=== PATIENT | female | born 1995 | race Caucasian/White ===

== ENCOUNTER 2017-11-30 17:40 | Emergency (ER) | payer OTHER ==
--- NOTE | 2017-11-30 18:42 | EDPHY ---
H & P Stated Complaint: cervical pain/IUD Time Seen by Provider: 11/30/17 18:42 - Personal History LMP (Females 10-55): IUD In Place Current Tetanus/Diphtheria Vaccine: Yes - Medical/Surgical History Hx Asthma: No Hx Chronic Respiratory Disease: No Hx Diabetes: No Hx Cardiac Disease: No Hx Renal Disease: No Hx Cirrhosis: No Hx Alcoholism: No - Social History Smoking Status: Current some day smoker Constitutional: Initial Vital Signs Temperature (C) 36.7 C 11/30/17 18:04 Heart Rate 90 11/30/17 18:04 Respiratory Rate 18 11/30/17 18:04 Blood Pressure 132/94 H 11/30/17 18:04 O2 Sat (%) 99 11/30/17 18:04 O2 Delivery Mode Room Air Allergies/Adverse Reactions: No Known Allergies Allergy (Unverified 11/30/17 18:07) Home Medications: Medication Instructions Recorded Cephalexin [Keflex (RX)] 500 mg PO TID #30 cap 11/30/17 Fluconazole 11/30/17 Medical Decision Making - Diagnostics Imaging Results: Imaging Impressions Pelvic/Renal Ultrasound 11/30/17 18:43 Impression: 1. There is an appropriately-positioned echogenic intrauterine device. 2. Bilateral ovarian enlargement with numerous tiny follicles. In the appropriate clinical context, this could represent PCOS. There is no evidence of ovarian torsion or dominant adnexal mass. 3. There is a small amount of free fluid in the pelvic cul-de-sac, which is a nonspecific finding, but could represent rupture of an ovarian follicle or cyst. Findings were discussed with Nayan Pavon MD at 20:40, on 11/30/2017. Imaging: Discussed imaging studies w/ call center operator Radiologist ED Course/Re-evaluation: CHIEF COMPLAINT: IUD Movement HISTORY OF PRESENT ILLNESS: This patient is a healthy 22 year old female. She complains of cervical discomfort onset this morning. She has also noted some pink-tinged vaginal discharge. When she provided a urine sample this evening, she saw some blood present. She has had an IUD in place since July, and had no complications from this in the past. After her symptoms began today, she checked for the strings of her IUD but was unable to locate them. She is concerned that the device may have moved. She denies any fever, flank pain, dysuria, abdominal pain , chest pain, shortness of breath, or other associated symptoms. REVIEW OF SYSTEMS: A 10 point review of systems was performed and is negative with the exception of the elements mentioned in the history of present illness. PHYSICAL EXAM: HR, BP, O2 Sat, RR. Temp noted General Appearance: Alert, well hydrated, appropriate, and non-toxic appearing. Head: Atraumatic without scalp tenderness or obvious injury Eyes: Pupils equal, round, reactive to light and accommodation, EOMI, no trauma , no injection. Ears: Clear bilaterally, no perforation, normal landmarks Nose: Atraumatic, no rhinorrhea, clear. Throat: There is no erythema or exudates, no lesions, normal tonsils, mucus membranes moist. Neck: Supple, 2+ carotid upstroke, nontender, no lymphadenopathy. Respiratory: No retractions, no distress, no wheezes, and no accessory muscle use. Lungs are clear to auscultation bilaterally. Cardiovascular: Regular rate and rhythm, no murmurs, rubs, or gallops. Bilateral carotid, radial, dorsalis pedis, and posterior tibial pulses intact. Good capillary refill all extremities. Gastrointestinal: Abdomen is soft, nontender, non-distended, no masses, no rebound, no guarding, no peritoneal signs. Musculoskeletal: Normal active ROM of all extremities, atraumatic. Neurological: Alert, appropriate, and interactive. The patient has normal DTRs and non-focal cranial nerves, motor, sensory, and cerebellar exam. Skin: No rashes, good turgor, no nodules on palpation. Past medical history: IUD in place. Past surgical history: Noncontributory. Family history: Noncontributory Social history: Friend at bedside. Does not abuse tobacco, drugs, or alcohol. DIFFERENTIAL DIAGNOSIS: The differential diagnosis for the patient's vaginal discomfort and bleeding included but was not limited to IUD displacement, ectopic , menses, miscarriage, and dysfunctional uterine bleeding. MEDICAL DECISION MAKIN22 y/o female presents with concerns that her IUD has shifted. Plan for US to evaluate IUD placement. Plan for labs including UA, urine test. UA positive for UTI. Urine test is negative. 20:[address] Noble, radiologist. US reveals ovarian cysts bilaterally. IUD is positioned correctly. Reassessed patient. Discussed imaging and laboratory results. Administered 500mg PO Keflex. Plan to discharge home in good condition with prescription for Keflex. Follow up and return precautions discussed. She is comfortable with this plan. - Data Points Laboratory Results: 11/30/17 11/30/17 18:40 18:40 Urine Color YELLOW Urine Appearance TURBID Urine pH 6.0 (5.0-7.5) Ur Specific Hardy 1.020 (1.002-1.030) Urine Protein 2+ H (NEGATIVE) Urine Ketones TRACE H (NEGATIVE) Urine Blood 3+ H (NEGATIVE) Urine Nitrate NEGATIVE (NEGATIVE) Urine Bilirubin NEGATIVE (NEGATIVE) Urine Urobilinogen NEGATIVE EU EU (0.2-1.0) Ur Leukocyte Esterase 1+ H (NEGATIVE) Urine RBC 50-182 /hpf H /hpf (0-3) Urine WBC 50-182 /hpf H /hpf (0-3) Ur Epithelial Cells NONE SEEN /lpf /lpf (NONE-1+) Urine Mucus 2+ /lpf H /lpf (NONE-1+) Urine Glucose NEGATIVE (NEGATIVE) Urine Test NEGATIVE Medications Given: Discontinued Medications Cephalexin HCl (Keflex) 500 mg PO EDNOW ONE PRN Reason: Protocol Stop: 11/30/17 20:43 Last Admin: 11/30/17 20:59 Dose: 500 mg Departure - Departure Disposition: Home, Routine, Self-Care Clinical Impression: Acute hemorrhagic cystitis UTI (urinary tract infection) Qualifiers: Urinary tract infection type: acute cystitis Hematuria presence: with hematuria Qualified Code(s): N30.01 - Acute cystitis with hematuria Condition: Good Instructions: Ovarian Cyst (ED), Urinary Tract Infection in Women (DC) Additional Instructions: 1. Take Keflex as prescribed. 2. Follow up with your primary care physician. 3. Return for fever, increased pain, heavy bleeding, or other worsening of condition. Referrals: Domonique Pandya MD [Medical Doctor] - As per Instructions Prescriptions: Cephalexin [Keflex (RX)] 500 mg PO TID #30 cap Report Scribed for: Nayan Pavon Report Scribed by: Rhonda Sullivan Date of Report: 11/30/17 Time of Report: 20:53
[2017-11-30] MEDS ORDERED: CEPHALEXIN 500 MG CAP PO ONE (20:42)
[2017-11-30 21:08] VITALS: BP 120/85
== END 2017-11-30 21:16 | disposition home or self-care (01) ==
DX: N30.01 Acute cystitis with hematuria (principal); F17.200 Nicotine dependence, unspecified, uncomplicated